=== PATIENT | female | born 1995 | race African-American/Black ===

== ENCOUNTER 2021-08-26 14:39 | Outpatient (CLI) | payer OTHER, MEDICAID, SELFPAY ==
--- NOTE | ~2021-08-26 | US_ITS ---
EXAMINATION: US OB <=14 wk fetus w TV DATE: 08/26/2021 16:41 INDICATION: Routine care during first trimester . TECHNIQUE: Real-time pelvic ultrasound utilizing both a transvaginal and transabdominal probe was pe rformed. The interpreting radiologist was not present for the study. COMPARISON: None. FINDINGS: The uterus measures 12.3 x 8.9 x 7.9 cm. There is an intrauterine gestational sac. A yolk sac and fe priyanka pole are identified. The crown rump length measures 3.3 cm, which correlates with an estimated ge stational age of 10 weeks and 2 days. heart motion is identified measuring 175 beats per minute (bpm) by M-mode Doppler. The right and left ovaries are unable to be visualized. There is no free fluid in the pelvis. IMPRESSION: 1. Single living fetus with heart rate of 175 bpm. 2. Gestational age by ultrasound of 10 weeks 2 day(s) +/- 6 day(s) with ultrasound estimated date of delivery (GAIL) of 03/22/2022. Reviewed, dictated and finalized at location A. OR DATABASE ADMINISTRATOR IMPRESSION: 1. Single living fetus with heart rate of 175 bpm. 2. Gestational age by ultrasound of 10 weeks 2 day(s) +/- 6 day(s) with ultras ound estimated date of delivery (GAIL) of 03/22/2022.
== END 2021-08-26 14:40 | disposition home or self-care (01) ==
LOC: ANHIMG 14:44
PROVIDERS: Visit Provider Obstetrics & Gynecology
DX: Z34.90 Encounter for supervision of normal pregnancy, unspecified, unspecified trimester (principal); Z3A.10 10 weeks gestation of pregnancy
CPT/HCPCS: 76801; 76817